=== PATIENT | female | born 1990 | race Caucasian/White ===

== ENCOUNTER 2018-02-21 13:39 | Emergency (ER) | payer OTHER, SELFPAY ==
[~2018-02-21] VITALS: Ht 167.6 cm; Wt 53.1 kg
[2018-02-21] MEDS ORDERED: IBUPROFEN 200 MG TABLET ONE (13:57)
[2018-02-21] MEDS ORDERED: DEXAMETHASONE 4 MG TABLET ONE (13:57)
[2018-02-21] MEDS ORDERED: ACETAMINOPHEN 500 MG TABLET ONE (13:57)
[2018-02-21 14:43] VITALS: BP 115/59
[2018-02-21] MEDS ORDERED: ACETAMINOPHEN 500 MG TABLET PO ONE (15:00)
[2018-02-21] MEDS ORDERED: DEXAMETHASONE 4 MG TABLET PO ONE (15:00)
[2018-02-21] MEDS ORDERED: IBUPROFEN 600 MG TABLET PO ONE (15:00)
== END 2018-02-21 14:45 | disposition home or self-care (01) ==
LOC: ED 14:27
DX: J02.9 Acute pharyngitis, unspecified (principal); F17.200 Nicotine dependence, unspecified, uncomplicated
CPT/HCPCS: 87081; 87880; 99284

== ENCOUNTER 2019-02-16 23:30 | Inpatient (IN) | payer OTHER ==
[~2019-02-16] VITALS: Ht 165.1 cm; Wt 55.0 kg
[2019-02-17] MEDS ORDERED: KETOROLAC 30 MG/1 ML IM ONE
[2019-02-17] MEDS ORDERED: ONDANSETRON ODT 4 MG PO ONE
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
[2019-02-17] MEDS ORDERED: KETOROLAC 30 MG/1 ML ONE (00:17)
[2019-02-17] MEDS ORDERED: ONDANSETRON ODT 4 MG ONE (00:17)
[2019-02-17 00:23] LABS: BASOPHILS # (AUTO) 0.06 x10^3/uL (0-0.1); BASOPHILS % (AUTO) 0 % (0-1); EOSINOPHILS % (AUTO) 1 % (1-7); LYMPHOCYTES # (AUTO) 1.44 x10^3/uL (1-3.4); LYMPHOCYTES % (AUTO) 10 % (22-44); MD NO; MEAN CORPUSCULAR HEMOGLOBIN 33.4 pg (27.0-34.8); MEAN CORPUSCULAR HGB CONC 33.2 g/dL (32.4-35.8); MEAN CORPUSCULAR VOLUME 100.6 fL (80-100); MEAN PLATELET VOLUME 7.7 fL (7.4-10.4); MONOCYTES # (AUTO) 1.32 x10^3/uL (0.2-0.8); MONOCYTES % (AUTO) 9 % (2-9); NEUTROPHILS # (AUTO) 12.22 x10^3/uL (1.8-6.8); NEUTROPHILS % (AUTO) 81 % (42-75); PLATELET COUNT 317 x10^3/uL (130-400); RED BLOOD COUNT 4.32 x10^6/uL (3.82-5.3); RED CELL DISTRIBUTION WIDTH 13.4 % (9.6-15.2)
[2019-02-17 00:26] LABS: RAPID INFLUENZA A Negative (Negative); RAPID INFLUENZA B Negative (Negative)
--- NOTE | 2019-02-17 00:29 | NUR ---
URINE SAMPLE PROVIDED. PT CONNECTED TO MONITORING. FRIEND AT FOR SUPPORT.
[2019-02-17 00:34] LABS: ALANINE AMINOTRANSFERASE 14 U/L (12-78); ALBUMIN 3.2 g/dL (3.4-5.0); ANION GAP 5 mmol/L (5-15); CALCIUM 8.5 mg/dL (8.5-10.1); CHLORIDE 105 mmol/L (98-107); CREATININE 0.86 mg/dL (0.55-1.02)
[2019-02-17 00:40] LABS: ALKALINE PHOSPHATASE 57 U/L (45-117); BILIRUBIN,TOTAL 0.3 mg/dL (0.2-1.0)
[2019-02-17 00:41] LABS: MICROSCOPIC AUTO
[2019-02-17 00:44] LABS: CULTURE INDICATED? YES
[2019-02-17] MEDS ORDERED: SODIUM CHLORIDE 0.9% 1,000ML IVBOLUS ONE ×2 (01:00→02:00)
[2019-02-17] MEDS ORDERED: CEFTRIAXONE PMX 1GM/50ML 50 ML IV ONE (01:00)
[2019-02-17] MEDS ORDERED: SODIUM CHLORIDE FLUSH 10ML SYR IVF ONE (01:00)
--- NOTE | 2019-02-17 01:19 | NUR ---
IV ESTABLISHED, 1 SET OF BLOOD CULTURES DRAWN WITH IV START. LAB AT COMPLETED 2ND SET. IVF INFUSING PER ORDER. PT. LAUGHING WITH FRIEND AT BS. PT. REPROTS "THAT SHOT WORKED REALLY WELL". C/O 04/22 FLANK "PRESSURE" AT THIS TIME. DENIES NEEDS. AWAITING CT READ.
[2019-02-17] MEDS ORDERED: CEFTRIAXONE PMX 1GM/50ML 50 ML ONE (01:21)
--- NOTE | 2019-02-17 02:11 | NUR ---
SM IN ROOM TO DISCUSS POC AND ADMISSION WITH PT.
[2019-02-17] MEDS ORDERED: ONDANSETRON 2MG/ML, 2ML IVPush PRN (02:30)
[2019-02-17] MEDS ORDERED: KETOROLAC 30 MG/1 ML IV PRN (02:30)
[2019-02-17] MEDS ORDERED: ONDANSETRON ODT 4 MG PO PRN (02:30)
[2019-02-17] MEDS ORDERED: BISACODYL 10 MG SUPP PR PRN (02:30)
[2019-02-17] MEDS ORDERED: LORazepam 2 MG/ML, 1ML IV PRN ×5 (02:30)
[2019-02-17] MEDS ORDERED: LORazepam 1MG TABLET PO PRN ×4 (02:30)
[2019-02-17] MEDS: NICOTINE 7 MG/24 HR PATCH.TD24 TD SCH (02:30)
[2019-02-17] MEDS ORDERED: DOCUSATE 100 MG CAPSULE PO PRN (02:30)
[2019-02-17] MEDS ORDERED: LORazepam 0.5MG TABLET PO PRN (02:30)
[2019-02-17] MEDS ORDERED: POTASSIUM CHLORIDE 20 MEQ TAB.ER.PRT PO ONE (02:30)
[2019-02-17] MEDS ORDERED: POLYETHYLENE GLYCOL 17 GM PACKET PO PRN (02:30)
[2019-02-17] MEDS ORDERED: ACETAMINOPHEN 325 MG TABLET PO PRN (02:30)
--- NOTE | 2019-02-17 02:36 | NUR ---
REPORT GIVEN TO MORENA DAVILA.
[2019-02-17 02:45] LABS: FREE T4 (FREE THYROXINE) 0.83 ng/dL (0.76-1.46)
[2019-02-17 03:00] LABS: HEMOGLOBIN A1C 4.6 % (4.2-6.3)
[2019-02-17 03:07] VITALS: BP 104/49
[2019-02-17] MEDS: CEFTRIAXONE PMX 1GM/50ML 50 ML IV ONE ×2 (03:09→03:35)
--- NOTE | 2019-02-17 03:16 | NUR ---
CALLED UP TO FLOOR AND SPOKE WITH MORENA DAVILA IN [facility] TO [address]GM [place] DOSE BY DR. ONEILL; THIS RN DID CONFRIM WITH DR. ONEILL THAT 2 GRAMS TO BE GIVEN TONGIHT AND PT. TO START ON 2GM ROCEPHIN DOSE Q24H TOMORROW.
[2019-02-17] MEDS: SODIUM CHLORIDE 0.9% 1,000 ML IV SCH ×3 (03:36→09:05)
[2019-02-17 03:40] VITALS: BP 104/49
[2019-02-17 08:41] VITALS: BP 109/52
[2019-02-17 14:00] VITALS: BP 110/55
[2019-02-17 19:16] VITALS: BP 112/72
[2019-02-18] MEDS ORDERED: CEFTRIAXONE PMX 2GM/50ML 50 ML IV SCH (01:00)
[2019-02-18 01:17] VITALS: BP 91/53
[2019-02-18 05:38] LABS: ALANINE AMINOTRANSFERASE 10 U/L (12-78); ALBUMIN 2.3 g/dL (3.4-5.0); ANION GAP 5 mmol/L (5-15); CALCIUM 7.9 mg/dL (8.5-10.1); CHLORIDE 112 mmol/L (98-107); CHOLESTEROL, TOTAL 102 mg/dL (140-239); CREATININE 0.57 mg/dL (0.55-1.02)
[2019-02-18 05:41] LABS: ALKALINE PHOSPHATASE 40 U/L (45-117); BILIRUBIN,TOTAL 0.3 mg/dL (0.2-1.0); CHOL/HDL RATIO 2.3; HDL CHOL % 44 % (28-40); HDL CHOLESTEROL (DIRECT) 45 mg/dL (40-60); LDL CHOLESTEROL,CALCULATED 41 mg/dL (54-169); LDL/HDL RATIO 0.9 (0.5-3.0); TOTAL PROTEIN 6.1 g/dL (6.4-8.2); TRIGLYCERIDES 80 mg/dL (50-200); VLDL CHOLESTEROL 16 mg/dL (0-25)
[2019-02-18 05:53] LABS: BASOPHILS # (AUTO) 0.04 x10^3/uL (0-0.1); BASOPHILS % (AUTO) 1 % (0-1); EOSINOPHILS # (AUTO) 0.22 x10^3/uL (0-0.4); EOSINOPHILS % (AUTO) 3 % (1-7); LYMPHOCYTES # (AUTO) 1.87 x10^3/uL (1-3.4); LYMPHOCYTES % (AUTO) 23 % (22-44); MD NO; MEAN CORPUSCULAR HEMOGLOBIN 33.2 pg (27.0-34.8); MEAN CORPUSCULAR HGB CONC 32.9 g/dL (32.4-35.8); MEAN PLATELET VOLUME 8.1 fL (7.4-10.4); MONOCYTES # (AUTO) 0.99 x10^3/uL (0.2-0.8); MONOCYTES % (AUTO) 12 % (2-9); NEUTROPHILS # (AUTO) 5.18 x10^3/uL (1.8-6.8); NEUTROPHILS % (AUTO) 62 % (42-75); PLATELET COUNT 255 x10^3/uL (130-400); RED BLOOD COUNT 3.58 x10^6/uL (3.82-5.3); RED CELL DISTRIBUTION WIDTH 13.3 % (9.6-15.2)
[2019-02-18] MEDS: NICOTINE 7 MG/24 HR PATCH.TD24 TD SCH (08:00)
[2019-02-18 08:46] VITALS: BP 112/69
[2019-02-18 13:58] VITALS: BP 98/62
[2019-02-18] MEDS ORDERED: CEFD300C37 PO (16:10)
== END 2019-02-18 17:37 | disposition home or self-care (01) | DRG 872 ==
LOC: ED 23:59 → EDIP 02-17 01:54 → 3N 02-17 02:55
PROVIDERS: ADMIT Internal Medicine; ATTEND Family Medicine
DX: A41.9 Sepsis, unspecified organism (principal); N10 Acute pyelonephritis; E87.6 Hypokalemia; F10.10 Alcohol abuse, uncomplicated; F12.90 Cannabis use, unspecified, uncomplicated; Z88.8 Allergy status to other drugs, medicaments and biological substances; F17.210 Nicotine dependence, cigarettes, uncomplicated; F41.9 Anxiety disorder, unspecified; G89.21 Chronic pain due to trauma; M54.9 Dorsalgia, unspecified
CPT/HCPCS: 36415; 71045; 74176; 80053; 80061; 81001; 83036; 83605; 83690; 83735; 84145; 84439; 84443; 84703; 85025; 87040; 87086; 87400; 87491; 87591; 93005; G0378; J0696; J1885; Q0162; J2060; J7030

== ENCOUNTER 2019-04-26 16:58 | Emergency (ER) | payer MEDICAID ==
[~2019-04-26] VITALS: Ht 167.6 cm; Wt 52.3 kg
[~2019-04-26 16:58] MED LIST: CEFD300C37 PO
[2019-04-26 17:01] VITALS: BP 119/62
--- NOTE | 2019-04-26 17:26 | NUR ---
PT HERE WITH C/O BILATERAL ARM PAIN AND NUMBNESS X 2 WEEKS. PT STATES "PAIN IS SO BAD I CAN'T EVEN GET DRESSED."
[2019-04-26 17:58] LABS: BASOPHILS # (AUTO) 0.09 x10^3/uL (0-0.1); BASOPHILS % (AUTO) 1 % (0-1); EOSINOPHILS # (AUTO) 0.13 x10^3/uL (0-0.4); EOSINOPHILS % (AUTO) 1 % (1-7); LYMPHOCYTES # (AUTO) 2.45 x10^3/uL (1-3.4); LYMPHOCYTES % (AUTO) 27 % (22-44); MD NO; MEAN CORPUSCULAR HEMOGLOBIN 32.7 pg (27.0-34.8); MEAN CORPUSCULAR HGB CONC 33.3 g/dL (32.4-35.8); MEAN CORPUSCULAR VOLUME 98.1 fL (80-100); MEAN PLATELET VOLUME 7.8 fL (7.4-10.4); MONOCYTES # (AUTO) 0.71 x10^3/uL (0.2-0.8); MONOCYTES % (AUTO) 8 % (2-9); NEUTROPHILS # (AUTO) 5.81 x10^3/uL (1.8-6.8); NEUTROPHILS % (AUTO) 63 % (42-75); PLATELET COUNT 407 x10^3/uL (130-400); RED BLOOD COUNT 4.77 x10^6/uL (3.82-5.3); RED CELL DISTRIBUTION WIDTH 13.2 % (9.6-15.2)
[2019-04-26 18:05] LABS: ALBUMIN 4.1 g/dL (3.4-5.0); ANION GAP 6 mmol/L (5-15); CALCIUM 9.9 mg/dL (8.5-10.1); CHLORIDE 106 mmol/L (98-107); CREATININE 0.79 mg/dL (0.55-1.02)
--- NOTE | 2019-04-26 19:24 | NUR ---
UA RESENT TO LAB.
[2019-04-26 19:29] LABS: MICROSCOPIC AUTO
[2019-04-26 19:41] LABS: CULTURE INDICATED? YES
--- NOTE | 2019-04-26 19:49 | NUR ---
Patient/Caregiver given discharge instructions and they have confirmed that they understand the instructions. Patient ambulatory with steady gait.
== END 2019-04-26 20:02 | disposition home or self-care (01) ==
LOC: ED 18:06
DX: M79.632 Pain in left forearm (principal); M79.631 Pain in right forearm; N30.00 Acute cystitis without hematuria; F17.200 Nicotine dependence, unspecified, uncomplicated
CPT/HCPCS: 36415; 80048; 81001; 82040; 84703; 85025; 87077; 87086; 87186; 99284